=== PATIENT | female | born 1955 | race Caucasian/White ===

== ENCOUNTER 2017-11-17 12:06 | Emergency (ER) | payer SELFPAY ==
[~2017-11-17] VITALS: Ht 162.6 cm; Wt 60.0 kg
[2017-11-17 13:28] VITALS: BP 137/89
== END 2017-11-17 13:29 | disposition home or self-care (01) ==
LOC: ER 12:06
DX: R55 Syncope and collapse (principal); R00.2 Palpitations; R51 Headache; R00.0 Tachycardia, unspecified; I10 Essential (primary) hypertension; E78.00 Pure hypercholesterolemia, unspecified; K21.9 Gastro-esophageal reflux disease without esophagitis; F41.9 Anxiety disorder, unspecified
CPT/HCPCS: 93005; 99283

== ENCOUNTER 2024-06-04 00:56 | Emergency (ER) | payer MEDICAID ==
[~2024-06-04] VITALS: Ht 162.6 cm; Wt 71.0 kg
[2024-06-04 01:06] VITALS: TEMP 36.9; O2SAT 100
[2024-06-04 01:50] LABS: BASOPHILS % 0.6 % (0.0-2.0); EOSINOPHILS % 1.6 % (0.0-5.0); HEMATOCRIT. 41.6 % (36.0-48.0); HEMOGLOBIN. 13.8 g/dL (12.0-16.0); LYMPHOCYTES % 32.1 % (20.0-50.0); MEAN CORPUSCULAR HEMOGLOBIN 31.1 pg (28.0-32.0); MEAN CORPUSCULAR HGB CONC 33.3 g/dL (31.0-37.0); MEAN CORPUSCULAR VOLUME 93.4 fL (81.0-99.0); MEAN PLATELET VOLUME 10.2 fl (7.4-10.4); MONOCYTES % 5.8 % (2.0-8.0); NEUTROPHILS % 59.9 % (40.0-76.0); PLATELET 285 x1000/uL (130-400); RED BLOOD CELL COUNT 4.45 mill/uL (4.2-5.4); RED CELL DISTRIBUTION WIDTH 13.6 % (11.6-14.6); WHITE BLOOD COUNT 7.6 x1000/uL (4.5-11.0)
[2024-06-04 01:58] LABS: CHLORIDE 98 mEq/L (98-107); POTASSIUM 3.8 mEq/L (3.5-5.1); SODIUM 134 mEq/L (136-145)
[2024-06-04 01:59] LABS: CARBON DIOXIDE 28 mEq/L (21-32)
[2024-06-04 02:04] LABS: CREATININE 1.1 mg/dL (0.6-1.0)
[2024-06-04 02:05] LABS: TROPONIN I HIGH SENSITIVITY 31 ng/L (3.0-34); UREA NITROGEN BLOOD 13 mg/dL (9-23)
[2024-06-04 02:06] LABS: ALANINE AMINOTRANSFERASE 13 IU/L (10-49); ALBUMIN 4.8 g/dL (3.2-4.8); ASPARTATE AMINOTRANSFERASE 15 IU/L (<34); BILIRUBIN DIRECT 0.1 mg/dL (<=3.0)
[2024-06-04 02:07] LABS: BILIRUBIN TOTAL 0.4 mg/dL (0.1-1.0); PROTEIN TOTAL 8.3 g/dL (6.0-8.3)
[2024-06-04 03:07] LABS: GLUCOSE 469 mg/dL (70-105)
[2024-06-04 03:08] LABS: INR 0.9
[2024-06-04] MEDS ORDERED: ASPIRIN 81MG TABLET PO ONE (03:30)
[2024-06-04 04:48] VITALS: BP 189/100; PULSE 105; RESP 15; O2SAT 98
[2024-06-06] MEDS ORDERED: AMLO5TAB88 PO (09:25)
[2024-06-06] MEDS ORDERED: ATOR20TA PO (09:25)
[2024-06-06] MEDS ORDERED: ASPI-1160 PO (09:25)
[2024-06-06] MEDS ORDERED: METF-414 MT (13:02)
[2024-06-10] MEDS ORDERED: LOSA50TA41 PO (13:26)
[2024-06-10] MEDS ORDERED: METO-539 PO (13:26)
== END 2024-06-04 04:50 | disposition home or self-care (01) ==
LOC: ER 01:16
DX: I10 Essential (primary) hypertension (principal); R73.9 Hyperglycemia, unspecified; N17.9 Acute kidney failure, unspecified; E78.00 Pure hypercholesterolemia, unspecified; K21.9 Gastro-esophageal reflux disease without esophagitis; Z79.899 Other long term (current) drug therapy
CPT/HCPCS: 80076; 80048; 83690; 85025; 85610; 84484; 36415; 71045; 93005; 99285; Z7610; A4606

== ENCOUNTER 2024-06-08 16:18 | Inpatient (IN) | payer MEDICAID ==
[~2024-06-08] VITALS: Ht 160 cm; Wt 60.8 kg
[~2024-06-08 16:18] MED LIST: AMLO5TAB88 PO; ASPI-1160 PO; ATOR20TA PO; METF-414 MT
[2024-06-08] MEDS ORDERED: AMLODIPINE 10MG TABLET PO ONE (17:00)
[2024-06-08 17:26] LABS: BASOPHILS % 0.4 % (0.0-2.0); EOSINOPHILS % 0.7 % (0.0-5.0); HEMATOCRIT. 41.7 % (36.0-48.0); HEMOGLOBIN. 13.8 g/dL (12.0-16.0); LYMPHOCYTES % 27.7 % (20.0-50.0); MEAN CORPUSCULAR VOLUME 90.8 fL (81.0-99.0); MEAN PLATELET VOLUME 10.4 fl (7.4-10.4); MONOCYTES % 5.7 % (2.0-8.0); NEUTROPHILS % 65.5 % (40.0-76.0); PLATELET 301 x1000/uL (130-400); RED BLOOD CELL COUNT 4.59 mill/uL (4.2-5.4); RED CELL DISTRIBUTION WIDTH 13.6 % (11.6-14.6); WHITE BLOOD COUNT 9.4 x1000/uL (4.5-11.0)
[2024-06-08 17:34] LABS: CARBON DIOXIDE 24 mEq/L (21-32); CHLORIDE 99 mEq/L (98-107); POTASSIUM 3.9 mEq/L (3.5-5.1); SODIUM 135 mEq/L (136-145)
[2024-06-08 17:35] LABS: CALCIUM 10.2 mg/dL (8.7-10.4)
[2024-06-08] MEDS: AMLODIPINE 5MG TABLET PO NR (17:37)
[2024-06-08 17:38] LABS: D-DIMER 0.38 mg/L FEU (<0.50); PARTIAL THROMBOPLASTIN TIME 24.8 sec (23.4-31.0); PROTHROMBIN TIME 10.5 sec (9.6-11.0)
[2024-06-08 17:40] LABS: CREATININE 0.9 mg/dL (0.6-1.0); GLUCOSE 301 mg/dL (70-105); TROPONIN I HIGH SENSITIVITY 17 ng/L (3.0-34); UREA NITROGEN BLOOD 21 mg/dL (9-23)
[2024-06-08 17:41] LABS: ALANINE AMINOTRANSFERASE 17 IU/L (10-49); ASPARTATE AMINOTRANSFERASE 22 IU/L (<34)
[2024-06-08 17:42] LABS: BILIRUBIN DIRECT 0.2 mg/dL (<=3.0); BILIRUBIN TOTAL 0.5 mg/dL (0.1-1.0); PROTEIN TOTAL 8.9 g/dL (6.0-8.3)
[2024-06-08 17:48] LABS: ETHANOL BLOOD < 10 mg/dL (<10)
[2024-06-08] MEDS: SODIUM CHLORIDE 0.9% (SEPSIS BOLUS) IV ONE (17:48)
[2024-06-08] MEDS: CEFTRIAXONE 1GM/50ML 50 ML IV ONE (17:48)
[2024-06-08 19:01] LABS: CLARITY URINE CLEAR (CLEAR); COLOR URINE YELLOW (YELLOW); GLUCOSE URINE 2+ (NEGATIVE); KETONES URINE TRACE (NEGATIVE); LEUKOCYTE ESTERASE URINE 1+ (NEGATIVE); NITRITE URINE NEGATIVE (NEGATIVE); OCCULT BLOOD URINE TRACE (NEGATIVE); PROTEIN URINE NEGATIVE (NEGATIVE); SPECIFIC GRAVITY URINE 1.005 (1.005-1.030); UROBILINOGEN URINE 0.2 E.U./dL (0.2-1.0)
[2024-06-08] MEDS: AZITHROMYCIN 500MG/250ML 250 ML IV ONE (19:11)
[2024-06-08 19:19] LABS: *AMPHETAMINES SCREEN URINE NEGATIVE (NEGATIVE); *BARBITURATES SCREEN URINE NEGATIVE (NEGATIVE); *BENZODIAZEPINES SCREEN URINE NEGATIVE (NEGATIVE); *COCAINE SCREEN URINE NEGATIVE (NEGATIVE); CANNABINOID URINE SCREEN NEGATIVE (NEGATIVE); ECSTASY MDMA SCREEN URINE NEGATIVE (NEGATIVE); METHADONE URINE SCREEN NEGATIVE (NEGATIVE); OPIATES URINE SCREEN NEGATIVE (NEGATIVE); PHENCYCLIDINE URINE SCREEN NEGATIVE (NEGATIVE)
[2024-06-08 20:23] LABS: BACTERIA URINE NONE SEEN; RBC URINE 0-2 /hpf (0-2); SQUAMOUS EPITHELIAL CELL URINE RARE /lpf (RARE/1+)
[2024-06-08 23:25] VITALS: BP 155/95; PULSE 100; RESP 18; TEMP 36.3
[2024-06-09] VITALS: BP 155/95; PULSE 100; RESP 18; TEMP 36.3; O2SAT 100
[2024-06-09] MEDS ORDERED: ONDANSETRON HCL 4MG/2ML INJ IV PRN (01:00)
[2024-06-09] MEDS ORDERED: HYDROCODONE/ACETAMINOPHEN 5/325MG TABLET PO PRN (01:00)
[2024-06-09] MEDS: METOPROLOL TARTRATE 25MG TABLET PO SCH (02:09)
[2024-06-09 04:00] VITALS: BP 125/70; PULSE 73; TEMP 36.5
[2024-06-09 07:14] LABS: TROPONIN I HIGH SENSITIVITY 18 ng/L (3.0-34)
[2024-06-09 08:00] VITALS: BP 131/75; PULSE 75; RESP 20; TEMP 36.7; O2SAT 99
[2024-06-09] MEDS: AMLODIPINE 10MG TABLET PO SCH (08:15)
[2024-06-09] MEDS: ASPIRIN 81MG EC TABLET PO SCH (08:15)
[2024-06-09] MEDS: ENOXAPARIN 40MG/0.4ML SYR SUBCUT SCH (08:18)
[2024-06-09 12:00] VITALS: BP 138/78; PULSE 78; RESP 19; TEMP 36.9; O2SAT 99
[2024-06-09 15:41] VITALS: BP 169/75; PULSE 104; RESP 19; TEMP 36.7; O2SAT 100
[2024-06-09] MEDS: LOSARTAN 50 MG TABLET PO SCH (16:07)
[2024-06-09 17:16] LABS: TROPONIN I HIGH SENSITIVITY 7 ng/L (3.0-34)
[2024-06-09 20:00] VITALS: BP 151/82; PULSE 92; RESP 18; TEMP 36.2; O2SAT 100
[2024-06-09] MEDS: METOPROLOL TARTRATE 50MG TABLET PO SCH (20:37)
[2024-06-10] VITALS: BP 100/61; PULSE 74; RESP 18; TEMP 35.9; O2SAT 100
[2024-06-10] MEDS ORDERED: DEXTROSE 50% WATER 50ML SYRINGE IV PRN (04:15)
[2024-06-10] MEDS: BLOOD SUGAR DIAGNOSTIC STRIP TEST SCH (07:10)
[2024-06-10 07:33] VITALS: BP 111/65; PULSE 76; RESP 20; TEMP 36.7; O2SAT 99
[2024-06-10] MEDS: INSULIN LISPRO 100 UNITS/ML SUBCUT SCH (08:11)
[2024-06-10 12:00] VITALS: BP 144/89; PULSE 90; RESP 20; TEMP 36.7; O2SAT 99
[2024-06-10] MEDS ORDERED: METO-539 PO (13:26)
[2024-06-10] MEDS ORDERED: LOSA50TA41 PO (13:26)
[2024-06-10 14:02] VITALS: BP 144/89; PULSE 90; TEMP 98; O2SAT 99
== END 2024-06-10 16:00 | disposition home or self-care (01) | DRG 199 ==
LOC: ER 16:18 → 8WST 18:39
PROVIDERS: ADMIT Internal Medicine; ATTEND Internal Medicine
DX: I16.0 Hypertensive urgency (principal); E11.9 Type 2 diabetes mellitus without complications; E78.00 Pure hypercholesterolemia, unspecified; F41.9 Anxiety disorder, unspecified; I10 Essential (primary) hypertension; K21.9 Gastro-esophageal reflux disease without esophagitis; Z79.84 Long term (current) use of oral hypoglycemic drugs; Z79.899 Other long term (current) drug therapy
CPT/HCPCS: 36415; 71045; 80048; 80076; 80305; 80320; 81003; 82962; 83036; 83605; 83880; 84145; 84443; 84484; 85025; 85379; 93005; 99285; A4606; J0456; J0696; J1650; J1815; J7030; G0480

== ENCOUNTER 2024-06-10 22:38 | Emergency (ER) | payer MEDICAID ==
[~2024-06-10] VITALS: Ht 165.1 cm; Wt 62.0 kg
[~2024-06-10 22:38] MED LIST changes: +LOSA50TA41 PO; +METO-539 PO
[2024-06-10 22:55] VITALS: O2SAT 99
[2024-06-11 00:03] VITALS: BP 157/92; PULSE 108; RESP 20; TEMP 36.7; O2SAT 99
== END 2024-06-11 00:21 | disposition home or self-care (01) ==
LOC: ER 22:38
DX: I10 Essential (primary) hypertension (principal); E11.9 Type 2 diabetes mellitus without complications; E78.00 Pure hypercholesterolemia, unspecified; K21.9 Gastro-esophageal reflux disease without esophagitis; Z79.82 Long term (current) use of aspirin; Z79.84 Long term (current) use of oral hypoglycemic drugs; Z79.899 Other long term (current) drug therapy
CPT/HCPCS: 99281